=== PATIENT | female | born 1965 | race Caucasian/White ===

== ENCOUNTER → 2024-07-22 | Outpatient (CLI) | payer MEDICARE, MEDICAID ==
[~2024-07-22] MED LIST: ADVAIR DISKUS1 DS1 IH; ALBUTEROL SULF6.7 GM IH; AMOXICILLIN AND1 TA2 PO; KLONOPIN 1MG1 MG PO; LISINOPRIL20 MG PO; NORCO 325 MG-51 TA1 PO; NORVASC 10MG10 MG PO
== END ==
LOC: RAD 12:24
DX: J45.50 Severe persistent asthma, uncomplicated (principal)